=== PATIENT | female | born 1985 | race Caucasian/White ===

== ENCOUNTER → 2019-06-24 14:50 | Outpatient (CLI) | payer BC, SELFPAY ==
--- NOTE | 2019-06-24 14:55 | US_ITS ---
PROCEDURE: US TRANSVAGINAL CLINICAL INDICATION: EXCESSIVE BLEEDING,PREMENOPAUSAL PERIOD COMPARISON: No exams were available for comparison FINDINGS: The uterus is 9 x 5 x 6 cm with a combined endometrial thickness of 6 mm. No uterine mass evident. Left ovary is 2.9 x 1.7 cm with no dominant mass. Right ovary is 4 x 2 cm containing a few of small follicles. Small echogenic focus noted within the posterior aspect of the uterus suggesting a small area of calcification IMPRESSION: Minimal calcification in the posterior uterus suspected otherwise negative Dictated by: Aleks Rosado MD 06/25/2019 06:34 Electronically signed by Aleks Rosado MD in [place] 06/25/2019 06:34
== END ==
PROVIDERS: PCP Nurse Practitioner; Visit Provider Family Medicine
DX: N92.4 Excessive bleeding in the premenopausal period (principal)
CPT/HCPCS: 76830

== ENCOUNTER → 2019-12-31 14:34 | Outpatient (CLI) | payer BC, SELFPAY ==
[2019-12-31 15:00] LABS: Basophils % 0.4 % (0.1-2.0); Eosinophils # 0.1 K/mm3 (0.0-0.4); Eosinophils % 1.4 % (0.1-12.0); Hematocrit 45.3 % (37.0-47.0); Lymphocytes # 1.3 K/mm3 (0.7-4.5); Lymphocytes % 20.1 % (10-50); Mean Corpuscular Hemoglobin 31.3 pg (27.0-31.2); Mean Corpuscular Volume 94.9 fl (81-99); Mean Platelet Volume 7.4 fl (7.4-10.4); Monocytes # 0.4 K/mm3 (0.1-1.0); Monocytes % 6.1 % (1.7-9.3); Neutrophils # 4.7 K/mm3 (1.8-7.8); Neutrophils % 72.1 % (37.0-80.0); Platelet Count 256 K/mm3 (142-424); Red Blood Count 4.78 M/mm3 (4.20-5.40); Red Cell Distribution Width 13.5 % (11.5-17.5); White Blood Count 6.5 K/mm3 (4.8-10.8)
[2019-12-31 16:05] LABS: Alanine Aminotransferase 24 U/L (12-78); Albumin Level 4.3 g/dl (3.5-5.0); Albumin/Globulin Ratio 1.4 (1.1-1.8); Alkaline Phosphatase 75 U/L (38-126); Aspartate Amino Transferase 24 U/L (14-36); Bilirubin,Total 0.4 mg/dl (0.2-1.3); Blood Urea Nitrogen 12 mg/dl (7-17); Calcium 9.7 mg/dl (8.4-10.2); Carbon Dioxide 22 mmol/L (22.0-30.0); Chloride 104 mmol/L (98-107); Estimated Glomerular Filt Rate 81 ml/min (>60); GFR (African American) 98 ML/MIN (>60); Globulin 3.1 g/dL (1.3-3.2); Glucose 148 mg/dl (74-100); Sodium 137 mmol/L (136-145); Total Protein,Serum 7.4 g/dl (6.3-8.2)
[2019-12-31 21:29] LABS: Coronavirus 19 IgG Antibody Negative (Negative); Coronavirus 19 IgM Antibody Negative (Negative)
[2019-12-31 22:00] LABS: HCG Qualitative, Serum Negative (Negative)
== END ==
PROVIDERS: Visit Provider Obstetrics & Gynecology
DX: N93.8 Other specified abnormal uterine and vaginal bleeding (principal); Z01.84 Encounter for antibody response examination; Z98.51 Tubal ligation status
CPT/HCPCS: 36415; 80053; 84703; 85025; 86328

== ENCOUNTER 2020-01-03 09:32 | Day surgery (SDC) | payer BC, SELFPAY ==
[2020-01-01 10:33] VITALS: BMI 35.2
[2020-01-03] VITALS (10 sets, daily range): BP systolic 116–145; BP diastolic 77–89; PULSE 62–96; RESP 14–20; TEMP 36.3–43; O2SAT 95–99
--- NOTE | 2020-01-03 10:53 | P.PN_ITS ---
[facility] Anesthesia Checklist - Patient Identification Patient Identification: Arm Band, Verbal (Name & ) - Structural Data Admitted From: Home Planned Operative Procedure/s: BTL, Novasure, Myosure Consent for Planned Operative Procedure(s) Verified: Yes Verified Documents: Surgical Consent, History and Physical - NPO Status Verified Time NPO: 00:00 - Chart Verification Results Verified: CBC, BMP, HCG - Additional verifications Patient : No Anesthesia Reactions: No Hx Blood Transfusions: No Blood Transfusion Reaction: No - Airway Assessment C-Spine Mobility Assessed: Yes (MP II, TMD 3) TMJ Mobility Assessed: Yes Dentition: Good Dentition - Neurological Assessment Level of Consciousness: Awake, Alert, Appropriate, Follows Commands Hx Seizures: No Numbness or tingling in extremities: No - Anesthesia Plan Anesthesia Risk discussed: Yes Anesthesia Plan: Verified ASA Class: II Anesthesia Type: General [facility] History I have reviewed the patient's past medical history: Yes Medical History: Denies:: Cancer, Diabetes Mellitus Type 1, Diabetes Mellitus Type 2, Internal Pacemaker, MRSA, Seizures *Have you ever received a pneumonia vaccine?: No *Have you received a flu vaccine this season?: Yes Other Medical History: Denies: Blood Transfusion Reaction Comment:: obesity, Anesthesia experience/problems:: None Laterality Cases: Bilateral: Myringotomy (Ear Tubes) Other Surgeries: No: Pacemaker Amputation: No Fractures: No Comment: obesity - *Social History Educational Level: Completed GED/General Educational Development Smoking Status: Current every day smoker Tobacco Type: cigarettes # Packs/Day (cigarettes): 1 Alcohol Intake: never Alcohol Intake Frequency:: 0-2 drinks per day Substance Use Type: denies use *Occupational Status:: employed Housing: house Household Members: family *Travel in the last 8 weeks: None Family Hx:: Asthma, Diabetes, Thyroid Disorder, Mental illness
--- NOTE | 2020-01-03 13:01 | P.OP_ITS ---
Date of procedure: 01/03/20 Pre-op Diagnosis:: 1. Dysfunctional uterine bleeding 2. Heavy menstrual bleeding 3. Severe dysmenorrhea 4. Undesired fertility Post-op Diagnosis:: 1. Dysfunctional uterine bleeding 2. Heavy menstrual bleeding 3. Severe dysmenorrhea 4. Undesired fertility Procedure performed:: 1. D&C Hysteroscopy 2. Novasure endometrial ablation 3. Diagnostic laparoscopy with bilateral fallopian tube occlusion Surgeon:: Magalie Gutierrez MD Anesthesia: GETA Estimated blood loss (mL): 5 Operative findings:: grossly normal ovaries and fallopian tubes Operative note:: The patient was taken to the operating room and general anesthesia was administered. She was prepped/draped in lithotomy position. A uterine manipulator was placed without difficulty. Gloves were changed and attention was turned to the abdomen. A 5mm skin incision was made in the umbilical fold and the Verees needle was inserted through the peritoneum and into the abdominal cavity in standard fashion. The abdomen was insufflated with CO2 gas. A 5mm non-bladed trocar was inserted directly into the abdominal cavity and appropriate placement was confirmed with the laparoscope. No intra-abdominal injuries occurred during entry into the abdominal cavity, as confirmed visually with the laparoscope. The patient was placed in trendelenburg and a 8mm skin in cision was made 2cm above the pubic symphysis. A 8mm non-bladed trocar was inserted under direct visualization, without complication. The uterus was elevated out of the pelvis in order to better visualize the anatomy. A survey of the pelvis and abdomen revealed the findings noted above. The uterus was angled towards the patient right and the left fallopian tube was grasped and a Filshie clip was placed over the tube. The clip was noted to completely occlude the tube, but an additional clip was placed across the tube medial to the first clip, as an additional precaution. The uterus was then angled towards the patient left, and the right fallopian tube was grasped and a Filshie clip was placed over the tube. The clip was noted to completely occlude the tube, but an additional clip was placed across the tube medial to the first clip, as an additional precaution. The abdomen was then evacuated of gas and all trocars removed. The skin incisions were closed with Dermabond. The uterine manipulator was removed and the cervix was dilated and hysteroscopic evaluation performed. Diffuse, shaggy endometrium was prominent throughout the cavity, but no submucosal fibroids or polyps were visualized. Sharp curettage was performed and the specimen sent for pathology. Once this was completed, the Novasure device was introduced into the uterus and measurements were obtained. A cavity length of 5.5cm and width of 4.5 cm were noted. Cavity assessment was successful, and the ablation was performed successfully, in 74 seconds, without complication. The Novasure was removed from the uterus and hysteroscope introduced. A diffuse ablation was noted throughout the cavity, with no areas of endometrium missed, but without ablating any endocervical tissue. All instruments were removed from her uterus and vagina. She was taken out of lithotomy position, awakened from anesthesia and taken to the PACU in stable condition. All counts correct. EBL 5cc. Condition: stable Disposition: PACU Specimens:: endometrial Complications:: none
--- NOTE | 2020-01-03 13:09 | HMH.ANESI ---
[facility] Anesthesia Record Part I Intake, IV Amount: 650 Estimated blood loss (mL): 5 Urine output (mL): 450 Blood Products used (#): none Blood Pressure: 138/77 SaO2: 97 Pulse Rate: 96 Respiratory Rate: 18 Temperature: 97.8 F Patient is:: Drowsy, Stable Stable to PACU at:: 13:01
--- NOTE | 2020-01-03 13:48 | P.PN_ITS ---
[facility] Anesthesia Record Part II Discharge Time: 13:31 Destination: Surgical Day Care (OP Surgery) PACU nurse assessment reviewed?: Yes Patient Condition:: Good Anesthesia Complications:: None Swallowing reflex intact?: Yes Cyanosis?: No Blood Pressure: 118/79 Pulse Rate: 67 Temperature: 97.7 F Mental Status: Alert & Oriented Pain level:: 8 Nausea and/or vomitting:: None Intake, IV Amount: 0
--- NOTE | 2020-01-03 15:01 | SUR.PHASEI ---
ASSOCIATE [employer]IA PLANNER and RN reported that patient was attempting to leave the stretcher on the way to the PACU. The patient started to roll in the stretcher. After much rolling and thrashing the patient d/c her IV line and most of her gown had been removed. Once the patient got into the PACU her right hand was cleaned up and bandaged. Her Jacque Hugger gown was removed the rest of the way. Bárbara Smith RN dressed the patient in a [facility] gown.
== END 2020-01-03 14:10 | disposition home or self-care (01) ==
PROVIDERS: PCP Nurse Practitioner; Visit Provider Obstetrics & Gynecology
PROC: 0UL74ZZ Occlusion of Bilateral Fallopian Tubes, Percutaneous Endoscopic Approach (ICD-10-PCS; CPT 58670; principal; 2020-01-03 11:45)
DX: N92.0 Excessive and frequent menstruation with regular cycle (principal); N93.8 Other specified abnormal uterine and vaginal bleeding; N94.6 Dysmenorrhea, unspecified; Z30.2 Encounter for sterilization; Z72.0 Tobacco use; Z79.899 Other long term (current) drug therapy
CPT/HCPCS: 58563; 58671; 96374; J2405; J2710

== ENCOUNTER → 2020-07-28 14:49 | Outpatient (POV) | payer BC, SELFPAY | PROVIDERS: Visit Provider Dermatology | DX: Z00.00 Encounter for general adult medical examination without abnormal findings (principal) ==

== ENCOUNTER → 2022-03-17 06:51 | Outpatient (CLI) | payer BC, SELFPAY ==
[2022-03-17 18:47] LABS: Basophils # 0.1 K/mm3 (0-0.2); Basophils % 1.4 % (0.1-2.0); Eosinophils # 0.2 K/mm3 (0.0-0.4); Eosinophils % 2.9 % (0.1-12.0); Hematocrit 42.3 % (37.0-47.0); Hemoglobin 14.2 g/dL (12.2-16.2); Lymphocytes # 1.5 K/mm3 (0.7-4.5); Lymphocytes % 23.7 % (10-50); Mean Corpuscular HGB Conc 33.5 g/dL (31.8-35.4); Mean Corpuscular Hemoglobin 31.2 pg (27.0-31.2); Mean Platelet Volume 9.1 fl (7.4-10.4); Monocytes # 0.7 K/mm3 (0.1-1.0); Monocytes % 10.7 % (1.7-9.3); Neutrophils # 3.9 K/mm3 (1.8-7.8); Neutrophils % 61.2 % (37.0-80.0); Platelet Count 312 K/mm3 (142-424); Red Blood Count 4.55 M/mm3 (4.20-5.40); Red Cell Distribution Width 12.9 % (11.5-17.5); White Blood Count 6.4 K/mm3 (4.8-10.8)
[2022-03-17 18:56] LABS: Alanine Aminotransferase 37 U/L (12-78); Albumin/Globulin Ratio 1.3 (1.1-1.8); Alkaline Phosphatase 100 U/L (38-126); Anion Gap 11.2 mEq/L (5-15); Aspartate Amino Transferase 39 U/L (14-36); Blood Urea Nitrogen 15 mg/dl (7-17); Calcium 8.9 mg/dl (8.4-10.2); Carbon Dioxide 24 mmol/L (22.0-30.0); Chloride 108 mmol/L (98-107); Chol/HDL Ratio 5.6 (1-3.5); Cholesterol 240 mg/dl (140-200); Estimated Glomerular Filt Rate 80 ml/min (>60); GFR (African American) 97 ML/MIN (>60); Globulin 3.1 g/dL (1.3-3.2); Glucose 76 mg/dl (74-100); HDL Cholesterol 43 mg/dl (40-60); Potassium 4.2 mmoL/L (3.5-5.1); Sodium 139 mmol/L (136-145); Total Protein,Serum 7.1 g/dl (6.3-8.2); Triglycerides 144 mg/dl (30-150); VLDL Cholesterol 29 mg/dL (0-40)
[2022-03-17 19:26] LABS: Thyroid Stimulating Hormone 3.54 uIU/mL (0.465-4.68)
[2022-03-17 19:47] LABS: Bilirubin,Total < 0.1 mg/dl (0.2-1.3)
[2022-03-17 23:14] LABS: Hemoglobin A1C 5.3 % (4.0-6.0)
== END ==
PROVIDERS: PCP Nurse Practitioner; Visit Provider Nurse Practitioner
DX: F41.9 Anxiety disorder, unspecified (principal); Z13.1 Encounter for screening for diabetes mellitus; Z13.220 Encounter for screening for lipoid disorders
CPT/HCPCS: 80053; 80061; 83036; 84443; 85025

== ENCOUNTER → 2022-04-07 15:37 | Outpatient (CLI) | payer BC, SELFPAY | PROVIDERS: PCP Nurse Practitioner; Visit Provider Nurse Practitioner | DX: G47.9 Sleep disorder, unspecified (principal); R06.83 Snoring | CPT/HCPCS: G0399 ==

== ENCOUNTER → 2022-04-25 08:44 | Outpatient (CLI) | payer BC, SELFPAY ==
[2022-04-25 18:25] LABS: Influenza A, PCR Not Detected (NotDetected); Influenza B, PCR Not Detected (NotDetected)
[2022-04-25 18:36] LABS: Basophils # 0.1 K/mm3 (0-0.2); Basophils % 0.8 % (0.1-2.0); Eosinophils # 0.2 K/mm3 (0.0-0.4); Eosinophils % 2.8 % (0.1-12.0); Hematocrit 44.8 % (37.0-47.0); Hemoglobin 14.1 g/dL (12.2-16.2); Lymphocytes # 1.2 K/mm3 (0.7-4.5); Lymphocytes % 19.5 % (10-50); Mean Corpuscular HGB Conc 31.4 g/dL (31.8-35.4); Mean Corpuscular Hemoglobin 30.3 pg (27.0-31.2); Mean Corpuscular Volume 96.4 fl (81-99); Mean Platelet Volume 8.8 fl (7.4-10.4); Monocytes # 0.7 K/mm3 (0.1-1.0); Monocytes % 10.3 % (1.7-9.3); Neutrophils # 4.2 K/mm3 (1.8-7.8); Neutrophils % 66.6 % (37.0-80.0); Platelet Count 292 K/mm3 (142-424); Red Blood Count 4.65 M/mm3 (4.20-5.40); Red Cell Distribution Width 13.2 % (11.5-17.5); White Blood Count 6.3 K/mm3 (4.8-10.8)
[2022-04-25 19:41] LABS: Coronavirus 19, PCR Detected (NotDetected)
== END ==
PROVIDERS: PCP Nurse Practitioner; Visit Provider Nurse Practitioner
DX: U07.1 COVID-19 (principal); J06.9 Acute upper respiratory infection, unspecified
CPT/HCPCS: 85025; C9803; U0003; U0005

== ENCOUNTER → 2022-06-27 14:15 | Outpatient (CLI) | payer BC, SELFPAY ==
--- NOTE | 2022-06-27 14:22 | US_ITS ---
FINAL REPORT TECHNIQUE: Sonographic images of the thyroid were obtained. CLINICAL HISTORY: enlarged thyroid FINDINGS: THYROID ULTRASOUND The right thyroid gland measures 4.8 x 1.5 x 2.0 cm. The parenchyma shows normal echogenicity. No dominant mass is seen. There is 1.6 x 0.6 cm soft tissue posterior to the right thyroid lobe of uncertain etiology. This could represent a parathyroid gland. The left thyroid gland measures 3.9 x 1.1 x 1.9 cm. The parenchyma shows normal echogenicity. No dominant mass is seen. IMPRESSION: No dominant thyroid mass. Soft tissue posterior to the right thyroid lobe may represent a parathyroid gland. Reviewed, Interpreted and Dictated by Siddhartha Pink III, MD Transcribed by Maria Isabel Barnett Authenticated and [facility]
== END ==
PROVIDERS: PCP Nurse Practitioner; Visit Provider Specialist
DX: E04.9 Nontoxic goiter, unspecified (principal)
CPT/HCPCS: 76536